=== PATIENT | female | born 1975 | race Caucasian/White ===

== ENCOUNTER 2019-03-01 04:39 | Inpatient (IN) ==
[2019-03-01] MEDS ORDERED: DUONEB NEB STA (05:23)
[2019-03-01 05:45] LABS: URINE PREGNANCY TEST NEGATIVE (NEGATIVE)
--- NOTE | 2019-03-01 06:20 | ED.PDOC ---
General ED Provider: Dr. ÁNGEL PARMAR-ER Chief Complaint: Cough Stated Complaint: i was treated for pneumonia last week in [place]--i am still coughing and sob Time Seen by Physician: 04:45 Mode of Arrival: Walk-In Information Source: Patient Exam Limitations: No limitations Nursing and Triage Documentation Reviewed and Agree: Yes Does patient meet sepsis criteria?: Yes If yes, has appropriate treatment been initiated?: Yes System Inflammatory Response Syndrome: Not Applicable Sepsis Protocol: For patient's 13 years and over: Temp is 96.8 and below OR 101 and greater Pulse >90 BPM Resp >20/minute Acutely Altered Mental Status Are patient's symptoms suggestive of a new infection, such as: -Pneumonia -Skin, Soft Tissue -Endocarditis -UTI -Bone, Joint Infection -Implantable Device -Acute Abdominal Infection -Wound Infection -Meningitis -Blood Stream Catheter Infection -Unknown Respiratory Complaint Exam - Respiratory Complaint/Exam Onset/Duration: 11/2 weeks Symptoms Are: Still present Timing: Constant Initial Severity: Mild Current Severity: Moderate Location: Chest Character: Reports: Productive cough Aggravating: Reports: URI Alleviating: Reports: Bronchodilators Associated Signs and Symptoms: Reports: Dyspnea, Fever, Chills, URI. Denies: Rapid breathing History of Healthcare-Acquired Pneumonia: No Status Asthmaticus Risk Factors: Reports: None Home Oxygen Use: No Recent Stress Test: No Recent Echo/LV Function: No Current Antibiotic Use: No Current Asthma Medication Use: No Respiratory Distress: None Inadequate Respiratory Effort: No Dysphagia Present: No Stridor Present: No JVD Present: No Accessory Muscle Use: No Retractions: Not Present Diminished Breath Sounds: No Sinus Tenderness: None Grunting Respirations: No Kussmaul Respirations: No Differential Diagnoses: Pneumonia Non-Traumatic Chest Pain Syncope: EKG Performed Review of Systems - Review Of Systems Constitutional: Reports: No symptoms Eyes: Reports: No symptoms Ears, Nose, Mouth, Throat: Reports: No symptoms Respiratory: Reports: Cough, Short of air Cardiac: Reports: No symptoms GI: Reports: No symptoms : Reports: No symptoms Musculoskeletal: Reports: No symptoms Skin: Reports: No symptoms Neurological: Reports: No symptoms Endocrine: Reports: No symptoms Hematologic/Lymphatic: Reports: No symptoms All Other Systems: Reviewed and Negative Past Medical History - Past Medical History Previously Healthy: Yes Endocrine: Reports: Unknown Cardiovascular: Reports: Unknown Respiratory: Reports: Unknown Hematological: Reports: Unknown Gastrointestinal: Reports: Unknown Genitourinary: Reports: Unknown Neuro/Psych: Reports: Unknown Musculoskeletal: Reports: Unknown Cancer: Reports: Unknown Last Menstrual Period: 02/23/19 - Surgical History General Surgical History: Reports: Unknown - Family History Family History: Reports: Unknown - Social History Smoking Status: Never smoker Hx Substance Use: No Alcohol Screening: None - Immunizations Tetanus Shot up to Date: Yes Physical Exam - Physical Exam Appearance: Well-appearing, No pain distress, Well-nourished Eyes: FAZAL, EOMI, Conjunctiva clear ENT: Ears normal, Nose normal, Oropharynx normal Neck: Supple Respiratory: Crackles, Rhonchi Cardiovascular: RRR, Pulses normal, No rub, No murmur GI/: Soft Musculoskeletal: Normal strength, ROM intact, No edema, No calf tenderness Skin: Warm, Dry, Normal color Neurological: Sensation intact, Motor intact, Reflexes intact, Cranial nerves intact, Alert, Oriented Psychiatric: Affect appropriate Interpretation - Radiology Interpretation Radiology Interpretation By: Radiologist Radiology Results: Positive Exam Interpreted: CT Scan - EKG Interpretation Time of EKG #1: 06:54 Rate: Normal Rhythm: Sinus Ectopy: None [place]: NL ST Segment: Normal Interpretation: nsr Physician Notification - Case Discussed Physician Notified: dr lagunas Time of Notification: 06:55 Critical Care Note - Critical Care Note Total Time (mins): 0 Course - Course Hematology/Chemistry: 03/01/19 05:30 03/01/19 05:30 Orders, Labs, Meds: Lab Review 03/01/19 03/01/19 03/01/19 05:21 05:25 05:30 WBC 6.00 RBC 4.60 Hgb 12.6 Hct 38.8 MCV 84.3 MCH 27.4 MCHC 32.5 RDW Coeff of Shani 17.2 H Plt Count 243 Immature Gran % (Auto) 0.3 Neut % (Auto) 70.0 Lymph % (Auto) 17.3 [place] % (Auto) 7.7 Eos % (Auto) 4.0 Baso % (Auto) 0.7 Immature Gran # (Auto) 0.0 Neut # (Auto) 4.2 Lymph # (Auto) 1.0 [place] # (Auto) 0.5 Eos # (Auto) 0.2 Baso # (Auto) 0.0 Puncture Site Rbrach O2 Saturation 98.0 ABG pH 7.407 ABG pCO2 28.3 L ABG pO2 100.0 ABG HCO3 17.9 L ABG Total CO2 19 L ABG Base Excess -7 L Rogelio Test + FiO2 % 21.0 Sodium Potassium Chloride Carbon Dioxide Anion Gap BUN Creatinine Estimated GFR (MDRD) BUN/Creatinine Ratio Glucose Lactic Acid Calcium Total Bilirubin AST ALT Alkaline Phosphatase NT-Pro-B Natriuret Pep Total Protein Albumin Globulin Albumin/Globulin Ratio Procalcitonin Urine Color Urine Clarity Urine pH Ur Specific [place] Urine Protein Urine Glucose (UA) Urine Ketones Urine Blood Urine Nitrite Urine Bilirubin Urine Urobilinogen Ur Leukocyte Esterase Urine Microscopic RBC Ur Squamous Epith Cells Urine Mucus Urine Test Influ A Molecular Assay Negative by naat Influ B Molecular Assay Negative by naat 03/01/19 03/01/19 03/01/19 05:30 05:30 05:30 WBC RBC Hgb Hct MCV MCH MCHC RDW Coeff of Shani Plt Count Immature Gran % (Auto) Neut % (Auto) Lymph % (Auto) [place] % (Auto) Eos % (Auto) Baso % (Auto) Immature Gran # (Auto) Neut # (Auto) Lymph # (Auto) [place] # (Auto) Eos # (Auto) Baso # (Auto) Puncture Site O2 Saturation ABG pH ABG pCO2 ABG pO2 ABG HCO3 ABG Total CO2 ABG Base Excess Rogelio Test FiO2 % Sodium 136.2 Potassium 3.99 Chloride 106.5 Carbon Dioxide 17.3 L Anion Gap 16.39 BUN 12.5 Creatinine 0.69 Estimated GFR (MDRD) 93.00 BUN/Creatinine Ratio 18.11 Glucose 114.1 H Lactic Acid 3.27 H Calcium 8.88 Total Bilirubin 0.82 AST 30.6 ALT 25.9 Alkaline Phosphatase 87.0 NT-Pro-B Natriuret Pep 35.900 Total Protein 6.77 Albumin 4.50 Globulin 2.27 Albumin/Globulin Ratio 1.98 Procalcitonin < 0.05 Urine Color Urine Clarity Urine pH Ur Specific [place] Urine Protein Urine Glucose (UA) Urine Ketones Urine Blood Urine Nitrite Urine Bilirubin Urine Urobilinogen Ur Leukocyte Esterase Urine Microscopic RBC Ur Squamous Epith Cells Urine Mucus Urine Test Influ A Molecular Assay Influ B Molecular Assay 03/01/19 03/01/19 05:30 05:30 WBC RBC Hgb Hct MCV MCH MCHC RDW Coeff of Shani Plt Count Immature Gran % (Auto) Neut % (Auto) Lymph % (Auto) [place] % (Auto) Eos % (Auto) Baso % (Auto) Immature Gran # (Auto) Neut # (Auto) Lymph # (Auto) [place] # (Auto) Eos # (Auto) Baso # (Auto) Puncture Site O2 Saturation ABG pH ABG pCO2 ABG pO2 ABG HCO3 ABG Total CO2 ABG Base Excess Rogelio Test FiO2 % Sodium Potassium Chloride Carbon Dioxide Anion Gap BUN Creatinine Estimated GFR (MDRD) BUN/Creatinine Ratio Glucose Lactic Acid Calcium Total Bilirubin AST ALT Alkaline Phosphatase NT-Pro-B Natriuret Pep Total Protein Albumin Globulin Albumin/Globulin Ratio Procalcitonin Urine Color Yellow Urine Clarity Clear Urine pH 5.5 Ur Specific [place] >=1.030 Urine Protein 1+ Urine Glucose (UA) Negative Urine Ketones Negative Urine Blood Negative Urine Nitrite Negative Urine Bilirubin Negative Urine Urobilinogen 0.2 Ur Leukocyte Esterase Negative Urine Microscopic RBC 0-2 Ur Squamous Epith Cells 2-5 Urine Mucus 1+ Urine Test Negative Influ A Molecular Assay Influ B Molecular Assay Orders Category Date Time Status ABG DRAW REQUEST Stat CARDIO 03/01/19 05:21 Completed EKG-(ED ONLY) Stat CARDIO 03/01/19 05:21 Completed NEBULIZER TREATMENT Stat CARDIO 03/01/19 05:23 Completed NPO REMINDER: IMAGING ONCE CARE 03/01/19 05:22 Completed ED PUMPER GAGER APPRENTICE APPLIED .ONCE EMERGENCY 03/01/19 05:21 Active ED IV/MEDIPORT/POWERPORT .ONCE EMERGENCY 03/01/19 05:21 Active ABG Stat LAB 03/01/19 05:21 Completed BLOOD CULTURE (ED ONLY) Stat LAB 03/01/19 05:30 Received CBC W/ AUTO DIFF Stat LAB 03/01/19 05:30 Completed COMPREHENSIVE METABOLIC PANEL Stat LAB 03/01/19 05:30 Completed FLU A/B MOLECULAR Stat LAB 03/01/19 05:25 Completed LACTIC ACID Stat LAB 03/01/19 05:30 Completed NT-PROBNP Stat LAB 03/01/19 05:30 Completed PROCALCITONIN Stat LAB 03/01/19 05:30 Completed URINALYSIS C & S IF INDICATED Stat LAB 03/01/19 05:30 Completed URINE Stat LAB 03/01/19 05:30 Completed 0.9 % Sodium Chloride [Saline Flush] MEDS 03/01/19 05:21 Active 1 syr IVF PRN PRN Ipratropium/Albuterol Neb [Duoneb] MEDS 03/01/19 05:23 Discontinued 1 vial NEB ONCE STA CT CHEST PE PROTOCOL Stat RADS 03/01/19 05:22 Completed Medications Generic Name Dose Route Start Last Admin Trade Name Freq PRN Reason Stop Dose Admin Sodium Chloride 1 syr 03/01/19 05:21 Saline Flush IVF PRN PRN To flush IV Discontinued Medications Generic Name Dose Route Start Last Admin Trade Name Freq PRN Reason Stop Dose Admin Albuterol/Ipratropium 1 vial 03/01/19 05:23 03/01/19 05:35 Duoneb NEB 03/01/19 05:24 1 vial ONCE STA Administration Vital Signs: Temp Pulse Resp BP Pulse Ox 03/01/19 04:42 99 F 99 H 22 122/82 95 Departure - Departure Time of Disposition: 06:55 Disposition: ADMITTED INPATIENT Discharge Problem: Pneumonia Qualifiers: Pneumonia type: due to unspecified organism Laterality: left Lung location: lower lobe of lung Qualified Code(s): J18.1 - Lobar pneumonia, unspecified organism Instructions: Pneumonitis (ED) Condition: Fair Pt referred to PMD for follow-up: Yes IPMP verified?: No Allergies/Adverse Reactions: Allergies Penicillins Adverse Reaction (Verified 03/01/19 04:59) Hives Sulfa (Sulfonamide Antibiotics) Adverse Reaction (Verified 03/01/19 05:00) Hives Home Medications: Ambulatory Orders Escitalopram Oxalate [Lexapro] 20 mg PO BEDTIME 03/01/19 Moxifloxacin HCl [Avelox] 400 mg PO DAILY 03/01/19 Ropinirole HCl [Requip] 4 mg PO TID 03/01/19 Ropinirole HCl [Ropinirole ER] 1 mg PO TID 03/01/19 Disposition Discussed With: Patient
--- NOTE | 2019-03-01 06:48 | CT ---
EXAM: CT angiogram of the chest with intravenous contrast 03/01/2019. Multi planar reformatted imag es obtained. MIP and three-dimensional reconstructed images provided HISTORY: Cough. Dyspnea COMPARISON: None. FINDINGS: The heart size appears within normal limits. There is no pericardial effusion. No pulmonary arterial filling defects are present. There is no evidence of pulmonary embolus. Diffuse bronchial wall thickening throughout both lungs. This may be infectious/inflammatory. Multi focal atelectasis. There is no pleural effusion or pneumothorax. There is a small focal area of con solidation within the medial aspect of the left lung base seen on image 58. This could represent pne umonia or atelectasis. Limited views of the upper abdomen show postsurgical changes of the stomach. Status post cholecystec faith. IMPRESSION: 1. No evidence pulmonary embolus. 2. Diffuse bronchial wall thickening which may be infectious/inflammatory. 3. Multifocal atelectasis. Focal consolidation at the medial left lung base may represent atelectas is and/or pneumonia.
[2019-03-01] MEDS ORDERED: TYLENOL PO PRN (06:56)
[2019-03-01 08:27] VITALS: BMI 42.7
[2019-03-01] MEDS: SODIUM CHLORIDE 1,000 ML IV SCH (08:37)
[2019-03-01] MEDS: SOLU-MEDROL 40 MG IVP SCH ×3 (08:45→21:12)
[2019-03-01] MEDS: LOVENOX SUBCUT SCH (08:45)
[2019-03-01] MEDS ORDERED: ROPINIROLE HCL 1 MG PO SCH (09:00)
[2019-03-01] MEDS ORDERED: NON-FORMULARY MEDICATION (Ropinirole Hcl [Requip] 4 MG) PO SCH (09:00)
[2019-03-01] MEDS ORDERED: LEVAQUIN 750 MG in PREMIX 150 ML D5W 1 BAG IV SCH (09:00)
[2019-03-01] MEDS ORDERED: DUONEB NEB SCH (12:00)
[2019-03-01] MEDS: NON-FORMULARY MEDICATION (Ropinirole Hcl [Requip] 4 MG) PO PRN ×2 (13:14→22:47)
[2019-03-01] MEDS: [UNRECOGNIZED DRUG - OTHER] PO PRN ×2 (13:14→22:47)
--- NOTE | 2019-03-01 16:00 | CT ---
Exam: CT neck without contrast. HISTORY: Cough and hoarseness, history of pneumonia. Procedures: Contiguous axial images were obtained through the chest from the skull base to the thora cic inlet without the use of contrast. Sagittal and coronal reformatted images were also created and reviewed. Findings: Evaluation of the soft tissues is limited without the use of intravenous contrast. There is metallic dental work with resultant beam-hardening artifact. The bilateral parotid and submandibu lar glands appear symmetric and grossly within normal limits. Subcentimeter lymph nodes are noted th roughout the neck soft tissues, without malachi lymphadenopathy. The thyroid gland appears within norm al limits. No peritonsillar fluid collection is identified within the limits of this study. The hyp opharynx appears patent. The epiglottis does not appear edematous. Limited visualization of the mendy g apices demonstrates no pneumothorax. No retropharyngeal fluid collection is seen. Bone windows demonstrate no evidence of acute fracture. There is normal aeration of the mastoid air cells. Minimal mucosal thickening is seen in the posterior ethmoid air cells. Impressions: No acute process on this noncontrast study of the neck.
[2019-03-01] MEDS ORDERED: NON-FORMULARY MEDICATION (Escitalopram Oxalate [Lexapro] 20 MG) PO SCH (21:00)
[2019-03-01] MEDS ORDERED: ACETAMINOPHEN 1000 MG PO PRN (21:00)
[2019-03-01] MEDS: LEXAPRO PO SCH (21:12)
[2019-03-02] MEDS: SODIUM CHLORIDE 1,000 ML IV SCH (03:33)
[2019-03-02] MEDS: LOVENOX SUBCUT SCH (08:37)
[2019-03-02] MEDS: SOLU-MEDROL 40 MG IVP SCH ×2 (08:37→20:09)
--- NOTE | 2019-03-02 09:12 | PCM.CONS ---
CONSULTING PROVIDER: Dr. ANTHONY BELL ATTENDING PROVIDER: Dr. Akshat DANIEL DATE OF SERVICE: 03/02/19 SUBJECTIVE: This 43 year old WHITE/ F was hospitalized 03/01/19. The patient is seen on consultation. She is hospitalized with pneumonia, seems to be viral. She was on Avelox and Vancomycin which was given in the ER at an outside hospital. The patient is hospitalized with cough and laryngitis type of symptoms. She is not in any distress. Appetite is good. REVIEW OF SYSTEMS: CONSTITUTIONAL: No night sweats. No fatigue, malaise, lethargy. No fever or chills. HEENT: Eyes: No visual changes. No eye pain. No eye discharge. ENT: No runny nose. No epistaxis. No sinus pain. No odynophagia. No congestion. RESPIRATORY: No cough, no congestion. No hemoptysis. No shortness of breath. CARDIOVASCULAR: No angina symptoms. No CHF symptoms. No atypical chest pain for CAD. No palpitations. No orthopnea. GASTROINTESTINAL: No abdominal pain. No nausea or vomiting. No diarrhea or constipation. No hematemesis. No hematochezia. GENITOURINARY: No urgency. No frequency. No dysuria. No hematuria. No obstructive symptoms. No discharge. No pain. No significant abnormal bleeding. MUSCULOSKELETAL: No musculoskeletal pain; no joint swelling. NEUROLOGICAL: Awake, alert, oriented to time, place and person. No headache. No neck pain. No syncope. No seizures. No dizziness. PSYCHIATRIC: Not anxious. No depression. No suicidal thoughts. No homicidal thoughts. SKIN: No rash. No lesions. No wounds. ENDOCRINE: No unexplained weight loss. No weight gain. HEMATOLOGIC/LYMPHATIC: No anemia. No purpura. No petechiae. No prolonged or excessive bleeding. No palpable lymph nodes. PHYSICAL EXAMINATION: GENERAL: The patient is awake, alert and oriented, lying in bed in no distress. VITAL SIGNS: Temperature 97.5 F, Pulse 78, Respiratory Rate 20, BP 119/66, Pulse Ox 97% HEENT: Head normocephalic, atraumatic. Eyes: Extraocular muscles are intact. Pupils are equal, round and reactive to light and accommodation. Ears: No lesions. Nose appeared normal. Throat: No exudate or erythema. NECK: Supple. No JVD, no carotid bruit. No lymphadenopathy or thyromegaly. LUNGS: Mild wheeze, expiratory which is very faint. Good air entry. Percussion note normal. Chest symmetrical. HEART: S1, S2, no S3. No murmurs. No cyanosis or clubbing. No ascites. Pulses: Dorsalis pedis and posterior tibial pulses +1 to +2 both sides. ABDOMEN: Soft. Non-tender. Bowel sounds active. No CVA tenderness. No mass felt. EXTREMITIES: No edema. Full range of motion of all extremities, equal. NEUROLOGIC: No focal deficit. Cranial nerves II through XII are grossly intact. No headache, no double vision or headache. SKIN: Warm and dry. Intact. Turgor-normal. LYMPHATIC: No palpable lymph nodes/no lymphedema. MUSCULOSKELETAL: Normal joints with no swelling. Muscle tone is normal. LAB REVIEW: 03/02/19 04:05 03/02/19 04:05 03/02/19 04:05: Lactic Acid 3.09 H 03/02/19 04:05: ESR 7 03/02/19 04:05: Sodium 136.0, Potassium 4.53, Chloride 105.6, Carbon Dioxide 20.6 L, Anion Gap 14.33, BUN 8.7, Creatinine 0.61, Estimated GFR (MDRD) 108.00, BUN/Creatinine Ratio 14.26, Glucose 164.3 H D, Calcium 8.98, Total Bilirubin 0.45, AST 23.0, ALT 27.3, Alkaline Phosphatase 77.5, Total Protein 6.23 L, Albumin 4.16, Globulin 2.07, Albumin/Globulin Ratio 2.00 03/02/19 04:05: WBC 6.41, RBC 4.44, Hgb 12.2, Hct 38.3, MCV 86.3, MCH 27.5, MCHC 31.9, RDW Coeff of Shani 17.0 H, Plt Count 209, Immature Gran % (Auto) 0.6, Neut % (Auto) 85.5, Lymph % (Auto) 11.2, [place] % (Auto) 2.3, Eos % (Auto) 0.2, Baso % (Auto) 0.2, Immature Gran # (Auto) 0.0, Neut # (Auto) 5.5, Lymph # (Auto ) 0.7, [place] # (Auto) 0.2 L, Eos # (Auto) 0.0, Baso # (Auto) 0.0 03/01/19 14:50: PT 10.3, INR 1.03, APTT 24.9 ASSESSMENT: 1. Pneumonitis 2. The patient is disabled from complex regional pain syndrome, left foot, 2005 , after left ganglion foot surgery for a cyst. 3. The patient is a nonsmoker with no history of asthma. RECOMMENDATIONS/PLAN: 1. Continue antibiotics, steroids. Plan and coordination of the patient's care discussed in the presence of Piano Machine Operator and Nurse. CONDITION: Stable SCRIBED BY: JOSE DE JESUS CARRINGTON Commodities Requirements Analyst scribed while in presence of service performed by Dr. ANTHONY BELL on 03/02/19 ([id number])
--- NOTE | 2019-03-02 10:02 | HP ---
DATE OF SERVICE: 03/01/19 CHIEF COMPLAINT: Cough. The patient presented to the emergency room early in the morning while en route to [place] from [place]. The problem was persistent cough. SOURCE OF HISTORY: The patient. Reliability is good. HISTORY OF PRESENT ILLNESS: The patient claimed that she began experiencing cough two weeks prior to presentation to this emergency room. She was seen by her doctor and was subsequently sent to the emergency room for further workup about one week ago and was given a diagnosis of pneumonia and was treated with Moxifloxacin 400 mg daily for the next 10 days. She went back to the emergency room because of no improvement from the cough and the patient was kept overnight and was initially given Vancomycin intravenously and developed redness and itching probably Red man's syndrome rather than pure allergy. The patient was given another antibiotic while she was in the emergency room but could not remember the name of the antibiotic and was discharged after observation. She was kept in the room designated for observation rather than admission to acute care. The patient was given Mucinex for cough but the Mucinex had no longer been working for the problem. The patient was seen by Dr. Galaviz in the emergency room who felt that the patient needed admitted to the hospital because of the cough. The patient was diagnosed with diffuse bronchial wall thickening which may be infectious or inflammatory, multifocal atelectasis, focal consolidation in the medial left lung base. Atelectasis versus pneumonia. Labs in the emergency room showed normal WBC, lower normal hemoglobin/hematocrit , elevated RDW. Arterial blood gases showed saturation 98, pH 7.407, pc02 28.3, HC03 17.9, total c02 19, p02 100. The patient seemed to have some metabolic acidosis with some respiratory compensation making pH normal. Lactic acid was elevated at 3.27. Sugar 114.1, renal panel normal. Liver normal. Procalcitonin normal, less than 0.05. Urinalysis unremarkable. pH is greater than 1.030. test negative. Influenza A and B by nuclear amplification were negative. I was asked to admit this patient because of the pneumonia. Other history was given to me during the course of discussion for admission. PAST PERSONAL HISTORY: The patient was diagnosed with Factor V deficiency about 15 years ago. She had her first child by section and that child is now 21 years of age. No history of excessive bleeding nor any need for blood transfusion. The second child is 5 years ago, again by section and there was no history of excessive bleeding nor a need for blood transfusion. The patient had gastroparesis, gastric contents only emptied about 8% after 246 hours. She did undergo cinda en y gastric bypass surgery 2011. The patient did show a picture of herself when she was having gastroparesis, she was slim and trim. The patient began gaining weight since after the surgery. She was told that a very small amount of the stomach was left in place. The patient claims to have had syncopal episode some time back and was blamed on low iron probably anemia. She was given iron infusions since then. Reason for the gastroparesis was nerve dysfunction and the patient is not diabetic. This patient has recurrent weakness of the left side of the face and happens once or twice a week lasting for a short length of time, sometimes three or four hours. 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 She had been to [facility] for the problems. She also had seen urologist while they were in [place]. They had moved to [place] about one year ago or more. Her operation, the gastric bypass , was done in [place] in 2011. 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 Foot is markedly touchy. For physical therapy she is able to tolerate a sock on her foot on the left. The patient also had a spasm and pain of the anal area that required myotomy of the anal sphincter. The patient claims to have stress incontinence, bladder and bowel when she coughs. The pain in the left foot now extends up to below the knee. Pressure application on the left leg causes pain or triggers the pain in the left foot. The patient was informed by her doctor that she had autoimmune problem. There was consideration of MS. She had an functional MRI of the head and was told that there were some findings however repeat did not show the same findings. She is being monitored for iron levels and needs iron infusion as well as B12. The patient does have sensation of pain in the left parietoccipital area. It had been there for some time. This patient had been placed on Neurontin as well as Lyrica for the CRPS. Those medications did not help. The patient had endoscopy 6 to 8 months ago and told that her stomach is about the size of a nickel, bigger than what it was before. She also had hernia repair as well as Zora Fundoplication to prevent her from vomiting or having reflux. FAMILY HISTORY: No one has the same problems that she has in her family. None has a Factor V deficiency. Mother had cancer of the breast and recently . Father had brain cancer. Father also had diabetes as well as heart disease. SOCIAL HISTORY: The patient is and resides with her . They are traveling to [place] because of the recent demise of her [id number]. They were on the road when her cough was persistent and they needed to stop since the cough would not stop. She had continued taking the Moxifloxacin since she was discharged the second time from the emergency room where she went. She had more or less used 7 days of the medication. Note: The patient's surgery was done July 18, 2010. It was done at [facility] and I am trying to get an address of this hospital. [facility] is a member of [facility]. Preoperative diagnosis was GERD, gastroparesis and obesity. Body mass index then was 44.87. The surgeon was Jamaal Keen. MEDICATIONS: Prior to this admission, Lexapro 20 mg at bedtime, Moxifloxacin 400 mg p.o. daily, Ropinirole 4 mg tablet three times a day p.r.n. Tylenol Extra-Strength 500 mg tablet two tablets q.6hr p.r.n. and formulary medication doesn't have a name 1 mg three times a day p.r.n. ALLERGIES: PENICILLIN AND SULFA (the patient is not sure of all the reactions since this was given to her when she was very young). She was born three weeks post expected date. She had a pneumonia, maybe aspiration. She claimed that her mother had a car accident, struck by a drunk [facility] REVIEW OF SYSTEMS: CONSTITUTIONAL: No fever, no chills with no significant fatigue. CHAIR FINISHER: The patient has pain in the left occipitoparietal area and had been there for some time. The patient also had recurrent weakness of the left side of the face. A recent diagnosis had been made, López's Palsy, stroke to myasthenia gravis or multiple sclerosis. These were just the differential diagnosis. She claims that she still has that weakness on the left side of the face. She had episodes of syncopal episodes some time ago but was blamed to low iron but she is getting iron infusion now. Denies any seizure events. VISUAL: Denies any blurred vision, double vision or transient loss of vision. AUDITORY: No dizziness, no tinnitus, no pain or drainage. She does have pain in the left TMJ. She has problems opening her mouth. She still is able to open but this had been ongoing for the last six days. RESPIRATORY: The patient has cough, minimally productive and repetitive at times. She began experiencing hoarseness three days ago. She denies any sore throat. No history of hemoptysis. CARDIOVASCULAR: Denies any chest pain. No oppressive pain and no diaphoresis. GASTROINTESTINAL: The patient claims that she has eating well because of the pain in the left TMJ when she opens her mouth. She denied any sore throat or dysphagia. No nausea. Stools are always liquid. She claimed to have bowel incontinence when coughing after the myotomy of the anal sphincter. MUSCULOSKELETAL: The patient has pain in the left foot extending up to below the knee. This came after the ganglion cyst was operated. The ganglion cyst was claimed to be sitting on a nerve. She has CRPS. She doesn't want someone to examine the left foot. Also had pain in the back about T10 to T12. This is tender to touch. She claims that she had an MRI done five months ago and there was some degenerative problems. The pain in the back seemed to radiate toward the front in the lower costal area and submammary. INTEGUMENT: No rash or pruritus except for the hypersensitivity of the skin on the left leg and foot. \\ ENDOCRINE: The patient has elevated BMI but has been as high as 44+ when she was operated for the bypass surgery. Surgery was done July 18, 2010. No history of diabetes and no polyuria or polydipsia. HEMATOLOGIC: The patient has low iron and is getting infusion of iron. She told me that they had been watching her B12 level as well as iron level. PSYCHIATRIC: Affect is normal. PHYSICAL EXAMINATION: GENERAL: 43-year-old female admitted to the hospital via the emergency room for what appeared to be a pneumonitis in the left lung base. There is also bronchial wall thickening. There was no pulmonary emboli. The patient never had any fever or chills. VITAL SIGNS: On admission on the floor at 7:53 a.m. temperature 98.1, pulse 77, blood pressure 108/67, respiratory rate 16, oxygen saturation 96 on room air, 5' 6", 264 lbs, 8.87 ozs. BMI 42.7. HEAD: Unremarkable. Scalp: No active dermatitis. The patient points to the left occipitoparietal area as an area of pain. EYES: Pupils equal/reactive to light and round. No significant tenderness in the frontal or maxillary sinus areas to palpation and/or pressure. The patient has some pain in opening the mouth at the left TMJ. MOUTH: Unremarkable. THROAT: No inflammation, tumors or exudate. NECK: No masses. No bruit. No tenderness. No adenopathies. CHEST: Symmetrical and equal with good expansion and tender at about T10 to T12 level to palpation. LUNGS: Breath sounds are heard on both sides, slightly diminished to the left with coarse breath sounds but no obvious rales and no wheezing. HEART: Audible and regular with good tones. No murmurs. ABDOMEN: Protuberant, pendulous, soft with no remarkable tenderness. No guarding. Bowel sounds are active. No masses palpable. EXTERNAL GENITALIA: Not examined. PELVIC/RECTAL: Not done. LOWER EXTREMITIES: The left leg is not examined as well as the left foot because of the pain and tenderness. According to the patient the patient has no significant edema. The anterior tibial pulses are present. UPPER EXTREMITIES: Symmetrical and equal with good strength. ASSESSMENT: 1. COUGH, REPETITIVE, ETIOLOGY UNDETERMINED 2. PNEUMONITIS MEDIAL LEFT LUNG BASE 3. BRONCHITIS 4. HISTORY OF GERD, GASTROPARESIS AND OBESITY STATUS POST TOTAL GASTRECTOMY AND CINDA EN Y PROCEDURE, 07/18/10. 5. HISTORY OF RECURRENT LEFT FACIAL PARALYSIS TEMPORAL ARTERY. 6. HISTORY OF PAIN ABOUT T10 THROUGH T12 LEVEL BEEN STUDIES BY HER FAMILY PHYSICIAN. 7. CRPS INVOLVING LEFT FOOT AND LEFT LEG POST GANGLION SURGERY. 8. HISTORY OF ANAL PAIN, UNABLE TO MOVE HER BOWELS AND HAD MYOTOMY AND TRY TO GET RECORDS OF THAT. 9. PAIN LEFT TMJ 6 DAYS. 10. HISTORY OF SYNCOPAL EPISODE FOUR MONTHS AGO RELATED TO IRON DEFICIENCY. 11. HISTORY OF EFFECTIVENESS OF NEURONTIN AND LYRICA FOR THE REGIONAL PAIN SYNDROME LEFT FOOT. 12. HISTORY OF FACTOR V DEFICIENCY. 13. SHE WAS TOLD THAT SHE HAD AUTOIMMUNE PROBLEMS. PLAN: 1. Stop Levofloxacin and start new antibiotic. This patient had been taking Moxifloxacin for 7 days for laryngitis. 2. Referral to specialty Cardiology to rule out any other problems. 3. If the patient's problems continue, this patient will probably be referred to medical center or to a place where there are some subspecialties available. PROGNOSIS: GUARDED TIME SPENT: GREATER THAN 65 MINUTES MTDD
[2019-03-02] MEDS: [UNRECOGNIZED DRUG - OTHER] PO PRN (10:30)
[2019-03-02] MEDS: NON-FORMULARY MEDICATION (Ropinirole Hcl [Requip] 4 MG) PO PRN (10:31)
[2019-03-02] MEDS: DOXY-100 100 MG in SODIUM CHLORIDE 100 ML IV SCH ×2 (14:13→20:10)
[2019-03-02] MEDS: ACETAMINOPHEN 1000 MG PO PRN (16:59)
[2019-03-02] MEDS: LEXAPRO PO SCH (20:10)
[2019-03-03] MEDS: SODIUM CHLORIDE 1,000 ML IV SCH ×2 (02:24→20:31)
[2019-03-03] MEDS: ACETAMINOPHEN 1000 MG PO PRN (02:54)
[2019-03-03] MEDS: DOXY-100 100 MG in SODIUM CHLORIDE 100 ML IV SCH ×2 (08:17→20:15)
[2019-03-03] MEDS: LOVENOX SUBCUT SCH (08:18)
[2019-03-03] MEDS: SOLU-MEDROL 40 MG IVP SCH (08:18)
--- NOTE | 2019-03-03 10:06 | CONS ---
DATE OF SERVICE: 03/02/19 CONSULTATION - ADDITIONAL INFORMATION SUBJECTIVE: The patient was seen in consultation with attending Dr. Waldron. The patient was hospitalized with pneumonitis type of symptoms. The patient was seen in the emergency room in the town that she visited. She was given Avelox and Vancomycin to which she had reaction with flushed feeling and redness of the cheeks. The patient ended up here in the emergency room. She has been traveling and is going to [place]. REVIEW OF SYSTEMS: CONSTITUTIONAL: Feels fatigued and tired feeling. No night sweats. No malaise, lethargy. No fever or chills. HEENT: Eyes: No visual changes. No eye pain. No eye discharge. ENT: No runny nose. No epistaxis. No sinus pain. No sore throat. No odynophagia. No ear pain. No congestion. RESPIRATORY: She has cough with laryngitis type of symptoms. No hemoptysis. CARDIOVASCULAR: No angina symptoms. No CHF symptoms. No atypical chest pain for CAD. No palpitations. No shortness of breath. GASTROINTESTINAL: No abdominal pain. No nausea or vomiting. No diarrhea or constipation. No hematemesis. No hematochezia. GENITOURINARY: No urgency. No frequency. No dysuria. No hematuria. No obstructive symptoms. No discharge. No pain. No significant abnormal bleeding. MUSCULOSKELETAL: No musculoskeletal pain. No joint swelling. No arthritis. NEUROLOGICAL: No headache. No neck pain. No syncope. No seizures. No dizziness. PSYCHIATRIC: Not anxious. No depression. No suicidal thoughts. No homicidal thoughts. SKIN: No rash. No lesions. No wounds. ENDOCRINE: No unexplained weight loss. No weight gain. HEMATOLOGIC/LYMPHATIC: No anemia. No purpura. No petechiae. No prolonged or excessive bleeding. No palpable lymph nodes. PHYSICAL EXAMINATION: GENERAL: The patient is oriented to time, place and person. HEENT: Head normocephalic, atraumatic. Eyes: Extraocular muscles are intact. Pupils are equal, round and reactive to light and accommodation. Ears: No lesions. Nose appeared normal. Throat: No exudate or erythema. NECK: Supple. No JVD, no carotid bruit. No lymphadenopathy or thyromegaly. LUNGS: Decreased breath sounds with good air entry. Percussion note normal. Chest symmetrical. HEART: S1, S2, no S3. No murmurs. No cyanosis or clubbing. No ascites. Pulses: Dorsalis pedis and posterior tibial pulses +1 to +2 bilaterally. ABDOMEN: Soft. Nontender. Bowel sounds active. No CVA tenderness. No mass felt. EXTREMITIES: No edema. Full range of motion of all extremities, equal. NEUROLOGIC: No focal deficit. Cranial nerves II through XII are grossly intact. No headache, no double vision or headache. SKIN: Not dry. Intact. Turgor - normal. LYMPHATIC: No palpable lymph nodes/no lymphedema. MUSCULOSKELETAL: Normal joints with no swelling. Muscle tone is normal. ASSESSMENT: 1. PNEUMONITIS. 2. THE PATIENT'S CARDIOVASCULAR STATUS SEEMS TO BE STABLE WITH NO EVIDENCE OF CHF. NO EVIDENCE OF CORONARY INSUFFICIENCY. THE PATIENT'S CARDIOVASCULAR STATUS IS STABLE. RECOMMENDATIONS: 1. I agree with present management. Thanks for the referral. LOLIS
[2019-03-03] MEDS: NON-FORMULARY MEDICATION (Ropinirole Hcl [Requip] 4 MG) PO PRN (13:11)
[2019-03-03] MEDS: [UNRECOGNIZED DRUG - OTHER] PO PRN (13:11)
[2019-03-03 14:20] VITALS: BP 122/71; TEMP 98.8
[2019-03-03] MEDS: LEXAPRO PO SCH (20:15)
--- NOTE | 2019-03-04 11:36 | DS ---
DATE OF SERVICE: 03/03/19 PATIENT IDENTIFICATION: 43 year old female stopped by [facility] Emergency Room while in route to [place] in the vocational nurse lvn hours. HOSPITAL COURSE: She and her were traveling and she had repetitive cough. The medication she was on was no longer helping. She had to stop to the emergency room and was seen by Dr. Galaviz and had the following workup, CBC; normal WBC, normal hgb and hct, elevated RDW 17.2, MCV 84.3, MCH 27.4. This patient was diagnosed to have low iron with anemia. She had dizziness and syncopal episode and was ascribed to the anemia and low iron and had been getting iron infusion and since then she had not had any episodes of dizziness or syncope. This happened some 4 months ago. Atrial blood gasses showed O2 98%, pH 7.407, pCO2 28.3, pO2 100, HCO3 17.9, total CO2 19, base excess -7, FiO2 21%. Electrolyte were normal , carbon dioxide was 317.3, renal panel normal, blood sugar 114.1, lactic acid 3.27. Urinalysis unremarkable except for specific gravity greater than 1.030. Chest CT with contrast showed no evidence of pulmonary embolus, diffused bronchial wall thickening maybe infectious or inflammatory, multifocal atelectasis, focal consolidation at the medial left lung base may represent atelectasis and or pneumonia. Reason for the CTA was cough and shortness. The patient had slight tachypnea. Er physician that she needed admission and was then admitted after discussing with me. This patient had been to the emergency room some 7-8 days initially and then 02/25/19, 4 days ago. She was diagnosed with pneumonitis and was prescribed Moxifloxacin 400mg daily. She did not feel any better so she presented back to the emergency room on 02/25/19 and was given IV Vancomycin. The patient may have some red man syndrome with the Vancomycin IV. She was kept over night and was given another medication intervenously presumably an antibiotic but the patient could not remember the name. The patient was discharged the following day and advised to resume the Moxifloxacin. The patient had left [place] and traveling towards [place]. She was driving her own vehicle along with her also driving another vehicle. The patient on examination had hoarseness and had developed some three days prior to presentation this this emergency room. The patient was given DUO NEB nebulizer in the emergency room. The patient's medications prior to admission to the emergency room at [place] were Lexapr0 20mg daily, Moxifloxacin 400mg PO daily, Ropinirole 4mg tablet three times a day PRN, vitamins, Tylenol extra strength 500mg tablets two tablets Q 6 hours PRN. The patient's allergies were Penicillin and Sulfa. The patient was given Levofloxacin 750mg intervenously on admission, her medications consisting of Lexapro, Tylenol, Ropinirole were continued. The patient also was given Lovenox 40mg SUBCUT daily. Levofloxacin was discontinued after the first dose. The patient on the following day was given Doxycycline 100mg intervenously Q 12 hours. The patient up to admission day showed no adverse effects to the Quinolones. No tendinopathy or any significant muscular problems. The patient's hoarseness has persisted but the throat does not have any significant inflammation. The patient did complain of some tremors with the nebulizer and so it was discontinued. The patient had no wheezing at the time of my examination and there was no recorded in the emergency room. The patient upon admission to the floor had a normal temperature 98.1, blood pressure 108/67, respiratory rate 16 and oxygen saturation 96 at room air. She was 5'6 weight 264 pounds and 8.87 ounces. BMI of 42.7. The patient's temperature remained normal throughout the hospital stay until discharge and the pulse also was within normal limits as well as the blood pressure being stable. Oxygen saturation varied from 95-98 at room air. The patient when she was discharged from [facility] emergency room was given a diagnosis of pneumonitis as well as lactic acidosis. The patient's general appearance had improved during this hospitalization. The hoarseness also has resolved today. I saw the patient about 1:00 this afternoon and when I came back around 9:00pm this evening the nursing was telling me that she wants to leave the hospital because it is easier for her to drive during the night to go to [place]. She told me that she is going to [place] and from there going toward [place] and from there to [place]. The patient was examined about 9:30pm. She was alert, oriented and ambulatory. She was not dyspneic or tachypneic and the hoarseness is gone. Her color is good. She has no dizziness and the lungs are clear to auscultation. I had the oxygen saturation again taken at that time and it was 97 at room air. This patient had been ambulating around the hospital and without any significant problems although she coughs slightly more on ambulating. The patient had no coughed during the course of the conversation that I had including during the examination. The patient had been coughing initially on admission during the course of taking a deep breath. The patient never did cough while taken a deep breath on examination. The lungs are now clear to auscultation in both sides with better air exchange. The course breath sounds on the left is resolved as well as the diminished breath sounds. There is no wheezing. Heart is audible and regular with good tones and no murmurs. Abdomen denies any tenderness and no pain in both legs. Expressed my reservation discharging her and driving towards [facility]. She told me that she has been driving this route every 3 months with her 5 year old son. Expressed my reservation about discharging and going to drive alone. She insisted on going. This discussion was carried in the presents of the nurse, Angeles Tan. The patient told me that her is going to monitor her trip and she tried to show me how it is being done. I told her that I would like to talk to her with regards to her decision. I told Mr. Arnett that his [facility] she can [facility]. I did agree that indeed that driving during the night would have less amount of traffic more so when she gets to [place]. I did express my reservation also to her . I told him that I would feel better is she would have company with her driving. Repeated again what his told me that she drives this area every 3 months. This is very familiar with the route. She plans to stay in [facility]. I told Mr. Arnett the nurse who is taking care of his is with me during the course of the conversation. [facility] with instructions to see a doctor wherever she may have any problems or symptoms that is not usual for her. She should also see her doctor in [place] as soon as she arrives to followup her pneumonia. I told her that she is prescribed a new antibiotic, Doxycycline which she should take two hours after breakfast and two hours after supper. This patient has a dumping syndrome that she goes to the bathroom 15 minutes after meals. I told her that she might be able to take the medication with her meals more so if her meals are small. This patient had a cinda en y gastric bypass in July 18, 2010. She had a 15cc gastric pouch. The patient' s lactic acid on admission was 3.27millimoles range of normal 0.7-2.1. The next day the lactic acid came down to 1.70. The Procalcitonin was less than 0.05. The urinalysis was unremarkable except for the specific gravity greater than 1.030 and remained essentially the same as the day of discharge. There was no blood, nitrate negative, leukocyte esterase negative, 0-2 RBC, no WBC. Blood sugar did rise from 114.1 on admission 164.3 the next day and 204.6 on . The hgb A1c however is normal 5.25. This probably most likely due to the methylprednisolone 40mg intervenously Q 12 hours. The patient during my conversation assures me that she feels well and she doesn't have any problems and the cough is much less and the hoarseness was gone. She likes to drive at night and has driven this route several times almost every 3 months. The other test results CMV-IgG antibody greater than 10, CMV- IgM antibody greater than 37.7, [place] virus E antigen IgG antibody is less than 9, [place] Virus nuclear antigen 19.9, influenza A antibody 1:32 and B 1:8, Nuclear amplification for both virus were negative. Mycoplasma pneumonia IgG is less than 100 and the IgM is less than 770, negative. I did explain this to the patient that maybe this cytomegalovirus may have been the initial reason for her cough some three weeks ago to this day. The patient denied any high fever or significant muscle aches with the cough that she had. The patient at discharge is in good spirits and stable, alert, oriented and gait is stable. FINAL DIAGNOSES: 1. Consolidation, medial left lung base probably pneumonia 2. Lactic acidosis, resolved reason undetermined 3. History of severe GERD 4. History of gastroparesis 5. History of elevated BMI, 44.47 6. History of Roue en Y gastric bypass because of the reflux, gastroparesis and elevated BMI 7. History of Factor V deficiency but no episodes of bleeding during surgeries 8. History of restless leg syndrome on medication 9. 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 Again this patient needs to see the family physician that she has as soon she gets home for the pneumonia followup. I told her that I just gave her four days of medication since she had been on antibiotics for approximately 10 days now. TIME SPENT: GREATER THAN 30 MINUTES MTDD
--- NOTE | 2019-03-05 11:15 | CONS ---
DATE OF CONSULTATION: 03/02/19 REASON FOR CONSULTATION: Persistent cough. HISTORY OF PRESENT ILLNESS: 43-year-old White female with cough times two weeks. She was seen in ER ( [place]) about one week ago. She was given Vancomycin IV (rash to face, itchng scalp) and Oxifloxacin 400 mg daily for 10 days. Traveling from [place] to [place] (moving). Cough became worse and she presented to ER for treatment. REVIEW OF SYSTEMS: CONSTITUTIONAL: No night sweats. No fatigue, malaise, lethargy. No fever or chills. HEENT: Eyes: No visual changes. No eye pain. No eye discharge. ENT: No sinus drainage. No epistaxis. No sinus pain. No sore throat. No odynophagia. No ear pain. No congestion. RESPIRATORY: Cough, no congestion. No hemoptysis. No shortness of breath. CARDIOVASCULAR: No angina symptoms. No CHF symptoms. No atypical chest pain for CAD. No palpitations. No orthopnea. GASTROINTESTINAL: No abdominal pain. No nausea or vomiting. No diarrhea or constipation. No hematemesis. No hematochezia. GENITOURINARY: No urgency. No frequency. No dysuria. No hematuria. No obstructive symptoms. No discharge. No pain. No significant abnormal bleeding. MUSCULOSKELETAL: Pain left foot to knee. Back pain. NEUROLOGICAL/POLICY INTERN: Syncope four months ago. No headache. No neck pain. No seizures. No dizziness. PSYCHIATRIC: Not anxious. No depression. No suicidal thoughts. No homicidal thoughts. SKIN: Dry/warm. No rash. No lesions. No wounds. ENDOCRINE: No unexplained weight loss. No weight gain. HEMATOLOGIC/LYMPHATIC: No anemia. No purpura. No petechiae. No prolonged or excessive bleeding. No palpable lymph nodes. 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 No alcohol use. . Family History: diabetes mellitus. PHYSICAL EXAMINATION: GENERAL: The patient is awake, alert, oriented times three. VITAL SIGNS: Pulse 78, BP 119/66, temperature 97.5, 02 sat 97% on room air. Weight 264 lbs, BMI 42. HEENT: Head normocephalic, atraumatic. Eyes: Extraocular muscles are intact. Pupils are equal, round and reactive to light and accommodation. Ears: No lesions. Nose appeared normal. Throat: No exudate or erythema. NECK: Supple. No JVD, no carotid bruit. No lymphadenopathy or thyromegaly. LUNGS: Clear to auscultation. Percussion note normal. Chest symmetrical. HEART: S1, S2, no S3. No murmur. No cyanosis or clubbing. No ascites. Pulses : Dorsalis pedis and posterior tibial pulses +1 bilaterally. ABDOMEN: Soft. Nontender. Bowel sounds active. No CVA tenderness. No mass felt. EXTREMITIES: No edema. Full range of motion of all extremities, equal. NEUROLOGIC: No focal deficit. Cranial nerves II through XII are grossly intact. No headache, no double vision or headache. SKIN: Warm and dry. Intact. Turgor - normal. LYMPHATIC: No palpable lymph nodes/no lymphedema. MUSCULOSKELETAL: Normal joints with no swelling. Muscle tone is normal. LABS: Influenza A and B negative. WBC 6.41, hemoglobion 12.2, platelets 209, hematocrit 38.3. Sodium 136, chloride 105.6, BUN 8.7, glucose 164.3, potassium 4.53, c02 20.6, creatinine 0.6. PT 10.3, INR 1.03, PTT 24.9. ABG on room air 98 % sat, p02 100, pc02 28.3, HC03 17.9, total c02 19, lactic acid 3.27 (adm), today 3.09. CT chest - no PE. Multifocal atelectasis. Focal consolidation at the medial left lung base. CT soft tissue neck - no acute process. ASSESSMENT: 1. HISTORY OF PERICARDITIS FOUR MONTHS AGO 2. ELEVATED LACTIC ACID, ETIOLOGY UNKNOWN - NORMAL SED RATE 3. PNEUMONIA (COMMUNITY ACQUIRED) 4. OBESITY 5. DJD RECOMMENDATIONS: 1. No further recommendations. 2. EKG 3. Telemetry 4. ABG's 5. Liver profile is okay, appetite is good. Thanks for referral, will follow. MTDD
--- NOTE | 2019-03-05 11:23 | CONS ---
DATE OF SERVICE: 03/03/19 CONSULT FOLLOWUP SUBJECTIVE: The patient was seen and examined. The patient is doing a lot better. The laryngitis seems to be better. The voice has improved. REVIEW OF SYSTEMS: CONSTITUTIONAL: No night sweats. No fatigue, malaise, lethargy. No fever or chills. HEENT: Eyes: No visual changes. No eye pain. No eye discharge. ENT: No runny nose. No epistaxis. No sinus pain. No sore throat. No odynophagia. No ear pain. No congestion. RESPIRATORY: No cough, no congestion. No hemoptysis. CARDIOVASCULAR: No angina symptoms. No CHF symptoms. No atypical chest pain for CAD. No palpitations. No shortness of breath. GASTROINTESTINAL: Appetite has improved. No abdominal pain. No nausea or vomiting. No diarrhea or constipation. No hematemesis. No hematochezia. GENITOURINARY: No urgency. No frequency. No dysuria. No hematuria. No obstructive symptoms. No discharge. No pain. No significant abnormal bleeding. MUSCULOSKELETAL: No musculoskeletal pain. No joint swelling. No arthritis. NEUROLOGICAL: No headache. No neck pain. No syncope. No seizures. No dizziness. PSYCHIATRIC: Not anxious. No depression. No suicidal thoughts. No homicidal thoughts. SKIN: No rash. No lesions. No wounds. ENDOCRINE: No unexplained weight loss. No weight gain. HEMATOLOGIC/LYMPHATIC: No anemia. No purpura. No petechiae. No prolonged or excessive bleeding. No palpable lymph nodes. PHYSICAL EXAMINATION: HEENT: Head normocephalic, atraumatic. Eyes: Extraocular muscles are intact. Pupils are equal, round and reactive to light and accommodation. Ears: No lesions. Nose appeared normal. Throat: No exudate or erythema. NECK: Supple. No JVD, no carotid bruit. No lymphadenopathy or thyromegaly. LUNGS: Clear to auscultation. Percussion note normal. Chest symmetrical. HEART: S1, S2, no S3. No pericardial rub. No murmurs. No cyanosis or clubbing. No ascites. Pulses: Dorsalis pedis and posterior tibial pulses +1 to +2 bilaterally. ABDOMEN: Soft. Nontender. Bowel sounds active. No CVA tenderness. No mass felt. EXTREMITIES: No edema. Full range of motion of all extremities, equal. NEUROLOGIC: No focal deficit. Cranial nerves II through XII are grossly intact. No headache, no double vision or headache. SKIN: Not dry. Intact. Turgor - normal. LYMPHATIC: No palpable lymph nodes/no lymphedema. MUSCULOSKELETAL: Normal joints with no swelling. Muscle tone is normal. ASSESSMENT: 1. PNEUMONITIS SEEMS TO BE RESOLVING RAPIDLY 2. STABILIZATION OF MEDICAL CONDITIONS 3. CARDIAC STATUS IS NORMAL; NO EVIDENCE OF CHF, CORONARY INSUFFICIENCY OR PERICARDITIS. RECOMMENDATIONS: 1. Echo to evaluate LV function. The patient's condition is otherwise stable. MTDD
--- NOTE | 2019-03-05 11:26 | CONS ---
CODING FOR BILLING 03/02/19 LEVEL 5 03/03/19 INTERMEDIATE MTDD
== END 2019-03-03 21:36 | disposition home or self-care (01) | DRG 194 ==
LOC: ED 04:39 → MEDSURG B 07:14
PROVIDERS: ADMIT General Practice; ATTEND General Practice
DX: J18.1 Lobar pneumonia, unspecified organism (principal); E87.2 Acidosis; Z68.41 Body mass index [BMI] 40.0-44.9, adult; J40 Bronchitis, not specified as acute or chronic; R06.00 Dyspnea, unspecified; R05 Cough; J06.9 Acute upper respiratory infection, unspecified; R50.9 Fever, unspecified; K21.9 Gastro-esophageal reflux disease without esophagitis
CPT/HCPCS: 36415; 80053; 81001; 81025; 82803; 83036; 83605; 83880; 84145; 85025; 85610; 85651; 85730; 86140; 86631; 86632; 86644; 86645; 86663; 86664; 86710; 86738; 87040; 87070; 87502; 93005; 93010; 94640; 99284